=== PATIENT | female | born 1990 | race Caucasian/White ===

== ENCOUNTER 2016-11-21 18:23 | Inpatient (IN) | payer MEDICAID ==
[~2016-11-21] VITALS: Ht 157.5 cm; Wt 86.4 kg
[~2016-11-21 18:23] MED LIST: CHOL20009 PO; DULO60CA PO; ELAVIL; GABA1POW27; HYDR-531 PO; HYDROXAZINE; INSU100I4 SC; INSUINJ37 SUBCUT; LORA-655 PO; PREG25CA; TIAZAC; [UNRECOGNIZED DRUG - OTHER]
[2016-11-21 19:29] LABS: Basophils # (auto) 0 uL; Basophils % (auto) 0.2 % (0.0-2.0); Eosinophils # (auto) 0 uL; Hematocrit 44.3 % (36.0-46.0); Hemoglobin 14.1 g/dL (12.2-16.2); Lymphocytes # (auto) 0.7 uL; Lymphocytes % (auto) 6.6 % (10.0-50.0); Mean Corpuscular Hemoglobin 30.7 pg (28.0-32.0); Mean Corpuscular Hgb Conc. 31.7 g/dL (32.0-36.0); Mean Corpuscular Volume 96.9 fL (80.0-100.0); Monocytes # (auto) 0.4 uL; Monocytes % (auto) 3.5 % (0.0-12.0); Neutrophils # (auto) 9.5 uL; Neutrophils % (auto) 89.7 % (37.0-80.0); Platelet Count (auto) 301 10^3/uL (140-450); Red Cell Distribution Width 14.3 % (11.6-16.0); White Blood Cell 10.6 10^3/uL (4.4-10.8)
[2016-11-21 19:46] LABS: Albumin 3.7 g/dL (3.4-5.0); Bilirubin, Total 0.6 mg/dL (0.2-1.0); Calcium 10.3 mg/dL (8.5-10.1); Total Protein 8.2 g/dL (6.4-8.2)
[2016-11-21 19:52] LABS: Potassium 5.7 mmol/L (3.5-5.1)
[2016-11-21] MEDS ORDERED: SODIUM CHLORIDE 0.9% 1,000 ML IV ONE (20:15)
[2016-11-21] MEDS ORDERED: ONDANSETRON HCL 4 MG/2 ML VIAL IV ONE ×2 (20:15→22:30)
[2016-11-21] MEDS ORDERED: InsuLIN REG 1unit/0.01ml Soln (100units/ml) IV ONE (20:45)
[2016-11-21] MEDS ORDERED: NALBUPHINE HCL 10 MG/1ml INJECTION IV ONE (22:30)
[2016-11-22] MEDS ORDERED: DEXTROSE (50%) 50ML SYRG IV PRN
[2016-11-22 00:38] LABS: Basophils # (auto) 0.1 uL; Basophils % (auto) 0.6 % (0.0-2.0); Eosinophils # (auto) 0 uL; Hematocrit 43.9 % (36.0-46.0); Hemoglobin 13.8 g/dL (12.2-16.2); Lymphocytes # (auto) 0.8 uL; Lymphocytes % (auto) 8.4 % (10.0-50.0); Mean Corpuscular Hemoglobin 30.8 pg (28.0-32.0); Mean Corpuscular Hgb Conc. 31.5 g/dL (32.0-36.0); Mean Corpuscular Volume 97.5 fL (80.0-100.0); Monocytes # (auto) 0.6 uL; Monocytes % (auto) 6.1 % (0.0-12.0); Neutrophils # (auto) 7.6 uL; Neutrophils % (auto) 84.9 % (37.0-80.0); Platelet Count (auto) 361 10^3/uL (140-450); Red Cell Distribution Width 13.4 % (11.6-16.0); White Blood Cell 9.1 10^3/uL (4.4-10.8)
[2016-11-22] MEDS: ACCU-CHEK COMFORT CURVE STRIP VI SCH ×24 (01:00→23:12)
[2016-11-22 01:01] LABS: BUN/Creatinine Ratio 13.8; Magnesium 2.3 mg/dL (1.6-2.6)
[2016-11-22] MEDS ORDERED: InsuLIN REG 1unit/0.01ml Soln (100units/ml) ONE (01:01)
[2016-11-22 01:05] LABS: Potassium 5.8 mmol/L (3.5-5.1)
[2016-11-22] MEDS ORDERED: SODIUM BICARBONATE 8.4 % INJ 50ML VIAL IV ONE (01:15)
[2016-11-22] MEDS ORDERED: NITROGLYCERIN 0.4 MG SL TAB SL PRN (01:15)
[2016-11-22] MEDS ORDERED: MORPHINE SULF INJ 2 MG/ML SYRINGE 1ML IV PRN (01:15)
[2016-11-22] MEDS: InsuLIN R (HUMAN) 100 UNITS in SODIUM CHL 0.9% 99 ML IV SCH (01:34)
[2016-11-22] MEDS: SODIUM CHLORIDE 0.9% 1,000 ML IV SCH ×5 (01:36→20:47)
[2016-11-22] MEDS: cefTRIAXone 1GM/50ML D5W 50 ML IV SCH (02:00)
[2016-11-22] MEDS: HYDROmorphone HCL 2 MG/ML VL IV PRN ×7 (03:00→20:24)
[2016-11-22] MEDS: ONDANSETRON HCL 4 MG/2 ML VIAL IV PRN ×6 (03:00→20:25)
[2016-11-22] MEDS ORDERED: SODIUM CHLORIDE 0.9% 1,000 ML IV SCH (03:56)
[2016-11-22] MEDS: FAMOTIDINE (10MG/ML) 2ML VL IV SCH ×2 (07:56→22:16)
[2016-11-22 09:57] LABS: Albumin 3.5 g/dL (3.4-5.0); BUN/Creatinine Ratio 17.1; Bilirubin, Total 0.5 mg/dL (0.2-1.0); Calcium 9.8 mg/dL (8.5-10.1); Potassium 4.4 mmol/L (3.5-5.1); Total Protein 7.7 g/dL (6.4-8.2)
[2016-11-22] MEDS ORDERED: D5W/SOD CHLO 0.9% 1,000 ML IV SCH (13:30)
[2016-11-22 14:57] LABS: Calcium 8.9 mg/dL (8.5-10.1); Potassium 4.1 mmol/L (3.5-5.1)
[2016-11-22 15:35] LABS: INR 0.98 (0.9-1.15); Partial Thromboplastin Time 24.1 sec (22.64-33.71); Prothrombin Time 10.1 sec (9.37-12.3)
[2016-11-22 20:23] LABS: BUN/Creatinine Ratio 11.6; Calcium 8.6 mg/dL (8.5-10.1); Magnesium 1.8 mg/dL (1.6-2.6); Potassium 4.3 mmol/L (3.5-5.1)
[2016-11-22] MEDS: D5W/SOD CHLO 0.9% 1,000 ML IV SCH (20:30)
[2016-11-23] MEDS: HYDROmorphone HCL 2 MG/ML VL IV PRN ×6 (00:12→22:31)
[2016-11-23] MEDS: ACCU-CHEK COMFORT CURVE STRIP VI SCH ×16 (00:12→20:35)
[2016-11-23 01:20] LABS: BUN/Creatinine Ratio 11.6; Calcium 7.8 mg/dL (8.5-10.1); Magnesium 1.8 mg/dL (1.6-2.6); Potassium 3.4 mmol/L (3.5-5.1)
[2016-11-23] MEDS: cefTRIAXone 1GM/50ML D5W 50 ML IV SCH (02:29)
[2016-11-23] MEDS: ONDANSETRON HCL 4 MG/2 ML VIAL IV PRN ×3 (03:22→16:18)
[2016-11-23] MEDS: InsuLIN R (HUMAN) 100 UNITS in SODIUM CHL 0.9% 99 ML IV SCH (06:02)
[2016-11-23 06:24] LABS: Basophils # (auto) 0 uL; Basophils % (auto) 0.3 % (0.0-2.0); Eosinophils # (auto) 0.1 uL; Eosinophils % (auto) 0.8 % (0.0-7.0); Hematocrit 31.6 % (36.0-46.0); Hemoglobin 10.5 g/dL (12.2-16.2); Lymphocytes # (auto) 3.5 uL; Lymphocytes % (auto) 27.4 % (10.0-50.0); Mean Corpuscular Hemoglobin 31.2 pg (28.0-32.0); Mean Corpuscular Hgb Conc. 33.2 g/dL (32.0-36.0); Mean Corpuscular Volume 93.9 fL (80.0-100.0); Monocytes # (auto) 0.8 uL; Monocytes % (auto) 6.1 % (0.0-12.0); Neutrophils # (auto) 8.3 uL; Neutrophils % (auto) 65.4 % (37.0-80.0); Platelet Count (auto) 336 10^3/uL (140-450); Red Cell Distribution Width 13.7 % (11.6-16.0); White Blood Cell 12.7 10^3/uL (4.4-10.8)
[2016-11-23] MEDS: D5W/SOD CHLO 0.9% 1,000 ML IV SCH (06:30)
[2016-11-23] MEDS: SODIUM CHLORIDE 0.9% 1,000 ML IV SCH (06:30)
[2016-11-23 06:33] LABS: INR 0.97 (0.9-1.15); Partial Thromboplastin Time 24.3 sec (22.64-33.71)
[2016-11-23 06:37] LABS: BUN/Creatinine Ratio 11.5; Calcium 7.8 mg/dL (8.5-10.1); Magnesium 1.7 mg/dL (1.6-2.6); Potassium 3.6 mmol/L (3.5-5.1)
[2016-11-23] MEDS: FAMOTIDINE (10MG/ML) 2ML VL IV SCH ×2 (10:12→22:00)
[2016-11-23] MEDS ORDERED: INSULIN DETEMIR(LEVEMIR) 1unit/0.01ml Soln (100units/ml) SC ONE (11:45)
[2016-11-23] MEDS: MAGNESIUM SULFATE 1GM/100ML 100 ML IV SCH ×2 (12:02→13:00)
[2016-11-23] MEDS ORDERED: IBUPROFEN 400 MG TAB PO PRN (12:30)
[2016-11-23] MEDS ORDERED: ACETAMINOPHEN 325 MG TAB PO PRN (12:30)
[2016-11-23 13:12] LABS: Basophils # (auto) 0 uL; Basophils % (auto) 0.3 % (0.0-2.0); Eosinophils # (auto) 0.1 uL; Eosinophils % (auto) 1.2 % (0.0-7.0); Hematocrit 44.7 % (36.0-46.0); Hemoglobin 14.2 g/dL (12.2-16.2); Lymphocytes # (auto) 2.9 uL; Lymphocytes % (auto) 26.8 % (10.0-50.0); Mean Corpuscular Hemoglobin 30.2 pg (28.0-32.0); Mean Corpuscular Hgb Conc. 31.8 g/dL (32.0-36.0); Mean Corpuscular Volume 95.1 fL (80.0-100.0); Mean Platelet Volume 8.5 fL (7.4-10.4); Monocytes # (auto) 0.4 uL; Neutrophils # (auto) 7.3 uL; Neutrophils % (auto) 67.7 % (37.0-80.0); Platelet Count (auto) 328 10^3/uL (140-450); Red Cell Distribution Width 14.2 % (11.6-16.0); SUSPECT VIEW TRANSMISSION; White Blood Cell 10.8 10^3/uL (4.4-10.8)
[2016-11-23 13:37] LABS: Calcium 9.2 mg/dL (8.5-10.1); Magnesium 2.2 mg/dL (1.6-2.6); Potassium 4.1 mmol/L (3.5-5.1)
[2016-11-23] MEDS ORDERED: DEXTROSE (50%) 50ML SYRG IV PRN (14:00)
[2016-11-23] MEDS: InsuLIN REG 1unit/0.01ml Soln (100units/ml) SC SCH ×2 (16:03→20:00)
[2016-11-23 18:26] LABS: Basophils # (auto) 0 uL; Basophils % (auto) 0.1 % (0.0-2.0); Eosinophils # (auto) 0.1 uL; Eosinophils % (auto) 0.9 % (0.0-7.0); Hemoglobin 10.8 g/dL (12.2-16.2); Lymphocytes # (auto) 2.8 uL; Lymphocytes % (auto) 21.6 % (10.0-50.0); Mean Corpuscular Hemoglobin 31.1 pg (28.0-32.0); Mean Corpuscular Hgb Conc. 33.7 g/dL (32.0-36.0); Mean Corpuscular Volume 92.1 fL (80.0-100.0); Mean Platelet Volume 8.6 fL (7.4-10.4); Monocytes # (auto) 0.2 uL; Monocytes % (auto) 1.8 % (0.0-12.0); Neutrophils # (auto) 9.9 uL; Neutrophils % (auto) 75.6 % (37.0-80.0); Platelet Count (auto) 297 10^3/uL (140-450); Red Cell Distribution Width 13.8 % (11.6-16.0); SUSPECT VIEW TRANSMISSION
[2016-11-23 18:30] VITALS: BP 118/78
[2016-11-23 18:40] LABS: Calcium 8.1 mg/dL (8.5-10.1); Magnesium 2.2 mg/dL (1.6-2.6); Potassium 4.5 mmol/L (3.5-5.1)
[2016-11-23 19:29] LABS: INR 1.04 (0.9-1.15); Partial Thromboplastin Time 21.9 sec (22.64-33.71); Prothrombin Time 10.7 sec (9.37-12.3)
[2016-11-23 22:00] VITALS: BP 134/85
[2016-11-23 22:43] LABS: Urine Bilirubin Negative (Negative); Urine Blood TRACE /uL (Negative); Urine Color Yellow (Yellow); Urine Glucose TRACE mg/dL (Normal); Urine Ketone Negative (Negative); Urine Nitrite Negative (Negative); Urine RBC 8 /hpf (0 - 4); Urine Urobilinogen Normal (Negative)
[2016-11-24] MEDS: ACCU-CHEK COMFORT CURVE STRIP VI SCH ×6 (01:26→20:55)
[2016-11-24] MEDS: InsuLIN REG 1unit/0.01ml Soln (100units/ml) SC SCH ×7 (01:27→21:07)
[2016-11-24] MEDS: HYDROmorphone HCL 2 MG/ML VL IV PRN ×4 (04:06→21:18)
[2016-11-24 05:25] VITALS: BP 133/86
[2016-11-24 06:36] LABS: Basophils # (auto) 0.1 uL; Basophils % (auto) 0.8 % (0.0-2.0); Eosinophils # (auto) 0.3 uL; Eosinophils % (auto) 3.5 % (0.0-7.0); Hematocrit 31.8 % (36.0-46.0); Hemoglobin 10.8 g/dL (12.2-16.2); Lymphocytes # (auto) 3.2 uL; Lymphocytes % (auto) 37.1 % (10.0-50.0); Mean Corpuscular Hemoglobin 31.2 pg (28.0-32.0); Mean Corpuscular Volume 91.7 fL (80.0-100.0); Mean Platelet Volume 7.5 fL (7.4-10.4); Monocytes # (auto) 0.6 uL; Monocytes % (auto) 7.3 % (0.0-12.0); Neutrophils # (auto) 4.4 uL; Neutrophils % (auto) 51.3 % (37.0-80.0); Platelet Count (auto) 281 10^3/uL (140-450); White Blood Cell 8.5 10^3/uL (4.4-10.8)
[2016-11-24 06:56] LABS: BUN/Creatinine Ratio 11.8; Calcium 7.8 mg/dL (8.5-10.1); Magnesium 2.1 mg/dL (1.6-2.6); Potassium 3.8 mmol/L (3.5-5.1)
[2016-11-24 06:57] LABS: INR 0.93 (0.9-1.15); Partial Thromboplastin Time 20.6 sec (22.64-33.71); Prothrombin Time 9.6 sec (9.37-12.3)
[2016-11-24] MEDS ORDERED: INSULIN DETEMIR(LEVEMIR) 1unit/0.01ml Soln (100units/ml) SC SCH (07:00)
[2016-11-24] MEDS ORDERED: DEXTROSE (50%) 50ML SYRG IV ONE (07:45)
[2016-11-24 08:36] VITALS: BP 127/75
[2016-11-24] MEDS: FAMOTIDINE (10MG/ML) 2ML VL IV SCH ×2 (09:22→22:07)
[2016-11-24] MEDS ORDERED: METHYLERGONOVINE MALEATE 0.2 MG/ML AMP IM ONE (13:06)
[2016-11-24] MEDS ORDERED: OXYTOCIN 10UNIT/ML 1ML VIAL ONE (13:08)
[2016-11-24 13:15] VITALS: BP 156/85
[2016-11-24] MEDS ORDERED: ceFAZolin 1GM/50ML D5W 50 ML IV ONE (13:25)
[2016-11-24] MEDS ORDERED: MIDAZOLAM HCL 1MG/1ML-2 ML VIAL ONE (13:35)
[2016-11-24] MEDS ORDERED: fentaNYL CITRATE 100 MCG/2 ML VL ONE (13:35)
[2016-11-24] MEDS ORDERED: DEXAMETHASONE SOD PHOS 10MG/1ML VIAL INJ ONE (13:36)
[2016-11-24] MEDS ORDERED: ONDANSETRON HCL 4 MG/2 ML VIAL IV ONE (13:45)
[2016-11-24] MEDS ORDERED: MIDAZOLAM HCL 1MG/1ML-2 ML VIAL IV PRN (13:45)
[2016-11-24] MEDS ORDERED: LABETALOL HCL 5 MG/ML 4ML SYRINGE IV PRN (13:45)
[2016-11-24] MEDS ORDERED: KETOROLAC TROMETH 30 MG/ML 1ML VIAL IV ONE (13:45)
[2016-11-24] MEDS ORDERED: MORPHINE SULF INJ 2 MG/ML SYRINGE 1ML IV PRN (13:45)
[2016-11-24] MEDS ORDERED: HYDROmorphone HCL 2 MG/ML VL IV PRN (13:45)
[2016-11-24] MEDS ORDERED: ePHEDrine SULFATE 50 MG/ML AMP IV PRN (13:45)
[2016-11-24] MEDS ORDERED: PROPOFOL 10 MG/ML 20 ML IV ONE (13:58)
[2016-11-24] MEDS: INSULIN DETEMIR(LEVEMIR) 1unit/0.01ml Soln (100units/ml) SC SCH (16:08)
[2016-11-24 16:28] VITALS: BP 161/93
[2016-11-24] MEDS ORDERED: hydrALAZINE HCL 20 MG/ML VL IV PRN (20:30)
[2016-11-24 23:16] VITALS: BP 140/79
[2016-11-25] MEDS: ACCU-CHEK COMFORT CURVE STRIP VI SCH ×6 (00:05→20:26)
[2016-11-25] MEDS: InsuLIN REG 1unit/0.01ml Soln (100units/ml) SC SCH ×6 (00:18→20:33)
[2016-11-25] MEDS: HYDROmorphone HCL 2 MG/ML VL IV PRN ×4 (01:50→14:45)
[2016-11-25 06:08] VITALS: BP 146/92
[2016-11-25 06:34] LABS: Basophils # (auto) 0 uL; Basophils % (auto) 0.4 % (0.0-2.0); Eosinophils # (auto) 0 uL; Hematocrit 35.2 % (36.0-46.0); Hemoglobin 11.6 g/dL (12.2-16.2); Lymphocytes # (auto) 1.3 uL; Lymphocytes % (auto) 16.5 % (10.0-50.0); Mean Corpuscular Hemoglobin 30.6 pg (28.0-32.0); Mean Corpuscular Hgb Conc. 33.1 g/dL (32.0-36.0); Mean Corpuscular Volume 92.5 fL (80.0-100.0); Monocytes # (auto) 0.5 uL; Monocytes % (auto) 6.5 % (0.0-12.0); Neutrophils % (auto) 76.6 % (37.0-80.0); Platelet Count (auto) 343 10^3/uL (140-450); Red Cell Distribution Width 13.4 % (11.6-16.0); White Blood Cell 7.8 10^3/uL (4.4-10.8)
[2016-11-25 06:51] LABS: Potassium 3.9 mmol/L (3.5-5.1)
[2016-11-25 06:54] LABS: BUN/Creatinine Ratio 7.6; Calcium 8.4 mg/dL (8.5-10.1)
[2016-11-25] MEDS ORDERED: INSULIN DETEMIR(LEVEMIR) 1unit/0.01ml Soln (100units/ml) SC SCH (07:00)
[2016-11-25 09:00] VITALS: BP 145/81
[2016-11-25] MEDS: INSULIN DETEMIR(LEVEMIR) 1unit/0.01ml Soln (100units/ml) SC SCH (10:00)
[2016-11-25] MEDS: FAMOTIDINE (10MG/ML) 2ML VL IV SCH (10:31)
[2016-11-25 13:00] VITALS: BP 143/91
[2016-11-25 17:00] VITALS: BP 105/56
[2016-11-25 17:57] LABS: BUN/Creatinine Ratio 17.6; Calcium 8.4 mg/dL (8.5-10.1); Potassium 3.4 mmol/L (3.5-5.1)
[2016-11-25] MEDS ORDERED: PERCOT PO (18:29)
[2016-11-25] MEDS ORDERED: DOXYCYCLINE 100 MG TAB/CAP PO SCH (18:30)
[2016-11-25] MEDS ORDERED: LEVEMIR SC (18:33)
[2016-11-25] MEDS ORDERED: DOX100T PO (18:33)
[2016-11-25] MEDS ORDERED: IBUP-781 PO (18:33)
[2016-11-25 18:56] VITALS: BP 105/50
== END 2016-11-25 21:05 | disposition home health service (06) | DRG 952 ==
LOC: ER 18:29 → TELE 18:30 → TELE-E-ADS 11-23 15:07 → TELE-WESTW 11-23 21:20
PROVIDERS: ADMIT Family Medicine; ATTEND Internal Medicine
PROC: 10D17ZZ Extraction of Products of Conception, Retained, Via Natural or Artificial Opening (ICD-10-PCS; principal; 2016-11-24 13:53)
DX: E10.10 Type 1 diabetes mellitus with ketoacidosis without coma (principal); N17.0 Acute kidney failure with tubular necrosis; E10.42 Type 1 diabetes mellitus with diabetic polyneuropathy; O24.011 Pre-existing type 1 diabetes mellitus, in pregnancy, first trimester; O03.4 Incomplete spontaneous abortion without complication; E86.0 Dehydration; O46.8X1 Other antepartum hemorrhage, first trimester; K21.9 Gastro-esophageal reflux disease without esophagitis; F41.8 Other specified anxiety disorders; O26.811 Pregnancy related exhaustion and fatigue, first trimester; O26.891 Other specified pregnancy related conditions, first trimester; O99.341 Other mental disorders complicating pregnancy, first trimester; Z79.4 Long term (current) use of insulin; Z88.1 Allergy status to other antibiotic agents; Z88.5 Allergy status to narcotic agent; Z88.8 Allergy status to other drugs, medicaments and biological substances; Z91.19 Patient's noncompliance with other medical treatment and regimen; Z83.3 Family history of diabetes mellitus; Z80.3 Family history of malignant neoplasm of breast; Z81.1 Family history of alcohol abuse and dependence; Z79.899 Other long term (current) drug therapy; Z3A.08 8 weeks gestation of pregnancy
CPT/HCPCS: 36415; 36600; 71010; 76801; 76817; 80048; 80053; 81001; 82010; 82805; 82962; 83036; 83735; 83930; 84100; 84702; 85025; 85049; 85610; 85730; 86850; 86900; 86901; 87493; 93005; 96361; 96374; 96375; 96376; J0690; J0696; J1100; J1815; J1885; J2250; J2405; J2704; J3490; J7042

== ENCOUNTER 2017-04-28 13:15 | Inpatient (IN) | payer MEDICAID, OTHER ==
[~2017-04-28] VITALS: Ht 157.5 cm; Wt 83.3 kg
[~2017-04-28 13:15] MED LIST changes: -CHOL20009 PO; +DOX100T PO; -DULO60CA PO; -ELAVIL; -GABA1POW27; +GABA1POW27 PO; -HYDR-531 PO; -HYDROXAZINE; +IBUP-781 PO; -INSUINJ37 SUBCUT; +LEVEMIR SC; -LORA-655 PO; +PERCOT PO; -PREG25CA; -TIAZAC; -[UNRECOGNIZED DRUG - OTHER]
[2017-04-28] MEDS ORDERED: SODIUM CHLORIDE 0.9% 1,000 ML IV ONE ×2 (13:24→16:00)
[2017-04-28 13:58] LABS: Basophils # (auto) 0 uL; CONDITION Y; Eosinophils # (auto) 0 uL; Eosinophils % (auto) 0.2 % (0.0-7.0); Hematocrit 44.2 % (36.0-46.0); Hemoglobin 14.4 g/dL (12.2-16.2); Lymphocytes # (auto) 1.2 uL; Lymphocytes % (auto) 8.4 % (10.0-50.0); Mean Corpuscular Hemoglobin 30.6 pg (28.0-32.0); Mean Corpuscular Hgb Conc. 32.7 g/dL (32.0-36.0); Mean Corpuscular Volume 93.8 fL (80.0-100.0); Mean Platelet Volume 9.9 fL (7.4-10.4); Monocytes # (auto) 0.4 uL; Monocytes % (auto) 2.4 % (0.0-12.0); Platelet Count (auto) 400 10^3/uL (140-450); Red Cell Distribution Width 12.9 % (11.6-16.0); White Blood Cell 14.6 10^3/uL (4.4-10.8)
[2017-04-28] MEDS ORDERED: SODIUM CHLORIDE 0.9% 1,000 ML IVB ONE (14:03)
[2017-04-28] MEDS ORDERED: InsuLIN REG 1unit/0.01ml Soln (100units/ml) IV ONE (14:15)
[2017-04-28 14:17] LABS: Albumin 3.6 g/dL (3.4-5.0); BUN/Creatinine Ratio 15.1; Bilirubin, Total 1.1 mg/dL (0.2-1.0); Calcium 9.1 mg/dL (8.5-10.1); Total Protein 8.3 g/dL (6.4-8.2)
[2017-04-28 14:26] LABS: Magnesium 2.4 mg/dL (1.6-2.6)
[2017-04-28 14:27] LABS: Urine Bilirubin Negative (Negative); Urine Blood Negative /uL (Negative); Urine Mucus FEW (None Seen); Urine Nitrite Negative (Negative); Urine RBC 1 /hpf (0 - 4); Urine Squamous Epithelial Cell MOD /hpf (<5); Urine Urobilinogen Normal (Negative)
[2017-04-28 14:28] LABS: Urine Color Straw (Yellow); Urine Glucose 4+ mg/dL (Normal); Urine Ketone 2+ (Negative)
[2017-04-28] MEDS ORDERED: ONDANSETRON HCL 4 MG/2 ML VIAL IV ONE (14:30)
[2017-04-28] MEDS ORDERED: HYDROmorphone HCL 2 MG/ML VL IV ONE (14:30)
[2017-04-28 14:36] LABS: Allen Test Yes; Base Excess -9.7 mmol/L (-2.0-2.0); Blood 02Sat 96.2 % (96-100); Blood COHb 0.7 % (0.5-1.5); Blood MetHb 0.4 % (0.0-1.5); HCO3 14.9 mmol/L (22-26.0); HHb 3.8 % (0.0-5.0); MODE ROOM AIR; O2Hb 95.1 % (94.0-97.0); PCO2 29.4 mmHg (35.0-45.0); PCO2(T) 29.4 mmHg (35.0-45.0); Sample Type Arterial; pH 7.323 (7.350-7.450)
[2017-04-28 14:39] LABS: INR 0.89 (0.9-1.15); Partial Thromboplastin Time 26.4 sec (22.64-33.71); Prothrombin Time 9.7 sec (9.37-12.3)
[2017-04-28] MEDS ORDERED: cefTRIAXone 1GM/50ML D5W 50 ML IV ONE ×2 (14:45→15:45)
[2017-04-28] MEDS ORDERED: InsuLIN R (HUMAN) 100 UNITS in SODIUM CHL 0.9% 99 ML IV SCH (15:03)
[2017-04-28] MEDS ORDERED: DEXTROSE (50%) 50ML SYRG IV PRN ×2 (15:15→15:45)
[2017-04-28 15:19] LABS: Potassium 5.6 mmol/L (3.5-5.1)
[2017-04-28] MEDS ORDERED: LORazepam 0.5 MG TAB PO PRN (15:45)
[2017-04-28] MEDS ORDERED: NITROGLYCERIN 0.4 MG SL TAB SL PRN (15:45)
[2017-04-28] MEDS ORDERED: ACETAMINOPHEN 500 MG TAB PO PRN (15:45)
[2017-04-28] MEDS ORDERED: MORPHINE SULF INJ 2 MG/ML SYRINGE 1ML IV PRN ×2 (15:45)
[2017-04-28] MEDS ORDERED: HYDROcodone-ACET 5/325MG TAB PO PRN (15:45)
[2017-04-28] MEDS ORDERED: PROMETHAZINE HCL 25 MG/ML 1ML IV PRN (15:45)
[2017-04-28] MEDS ORDERED: TEMAZEPAM 15 MG CAP PO PRN (15:45)
[2017-04-28] MEDS: InsuLIN R (HUMAN) 100 UNITS in SODIUM CHL 0.9% 99 ML IV SCH ×2 (16:09→19:35)
[2017-04-28] MEDS: SODIUM CHLORIDE 0.9% 1,000 ML IV SCH ×3 (16:11→21:43)
[2017-04-28] MEDS: ACCU-CHEK COMFORT CURVE STRIP VI SCH ×8 (16:11→23:08)
[2017-04-28] MEDS ORDERED: ACCU-CHEK COMFORT CURVE STRIP VI SCH (16:30)
[2017-04-28] MEDS: HYDROmorphone HCL 2 MG/ML VL IV PRN ×2 (17:00→21:09)
[2017-04-28] MEDS ORDERED: SODIUM CHLORIDE 0.9% 1,000 ML IV SCH (19:42)
[2017-04-28 21:43] LABS: BUN/Creatinine Ratio 16.9; Calcium 7.3 mg/dL (8.5-10.1)
[2017-04-28 21:57] LABS: Potassium 4.3 mmol/L (3.5-5.1)
[2017-04-29] VITALS (9 sets, daily range): BP systolic 99–128; BP diastolic 52–87
[2017-04-29] MEDS: ONDANSETRON HCL 4 MG/2 ML VIAL IV PRN ×6 (01:08→22:20)
[2017-04-29] MEDS: HYDROmorphone HCL 2 MG/ML VL IV PRN ×6 (01:09→22:20)
[2017-04-29] MEDS ORDERED: InsuLIN REG 1unit/0.01ml Soln (100units/ml) ONE (01:27)
[2017-04-29] MEDS: ACCU-CHEK COMFORT CURVE STRIP VI SCH ×6 (01:56→22:28)
[2017-04-29] MEDS: SODIUM CHLORIDE 0.9% 1,000 ML IV SCH ×3 (01:57→17:42)
[2017-04-29 06:16] LABS: Basophils # (auto) 0.1 uL; Basophils % (auto) 0.9 % (0.0-2.0); CONDITION Y; Eosinophils # (auto) 0.1 uL; Eosinophils % (auto) 1.5 % (0.0-7.0); Hematocrit 37.6 % (36.0-46.0); Hemoglobin 12.7 g/dL (12.2-16.2); Lymphocytes # (auto) 3.3 uL; Lymphocytes % (auto) 33.4 % (10.0-50.0); Mean Corpuscular Hemoglobin 30.5 pg (28.0-32.0); Mean Corpuscular Hgb Conc. 33.7 g/dL (32.0-36.0); Mean Corpuscular Volume 90.5 fL (80.0-100.0); Mean Platelet Volume 9.4 fL (7.4-10.4); Monocytes # (auto) 0.5 uL; Monocytes % (auto) 4.6 % (0.0-12.0); Neutrophils % (auto) 59.6 % (37.0-80.0); Platelet Count (auto) 363 10^3/uL (140-450); Red Cell Distribution Width 12.5 % (11.6-16.0)
[2017-04-29] MEDS ORDERED: ALBU18 IN (06:33)
[2017-04-29] MEDS ORDERED: DIPH-506 OR (06:33)
[2017-04-29] MEDS ORDERED: INSLANTI SC (06:33)
[2017-04-29 06:44] LABS: Albumin 2.8 g/dL (3.4-5.0); Calcium 7.6 mg/dL (8.5-10.1); Potassium 3.7 mmol/L (3.5-5.1)
[2017-04-29 06:46] LABS: BUN/Creatinine Ratio 14.3
[2017-04-29 06:48] LABS: Bilirubin, Total 0.4 mg/dL (0.2-1.0); Total Protein 6.5 g/dL (6.4-8.2)
[2017-04-29] MEDS ORDERED: InsuLIN REG 1unit/0.01ml Soln (100units/ml) SC SCH (07:00)
[2017-04-29] MEDS: cefTRIAXone 1GM/50ML D5W 50 ML IV SCH (09:36)
[2017-04-29] MEDS: InsuLIN REG 1unit/0.01ml Soln (100units/ml) SC SCH ×4 (10:05→22:39)
[2017-04-29 11:55] LABS: BUN/Creatinine Ratio 15.1; Calcium 7.4 mg/dL (8.5-10.1)
[2017-04-30] MEDS: SODIUM CHLORIDE 0.9% 1,000 ML IV SCH ×3 (00:12→13:42)
[2017-04-30] MEDS: HYDROmorphone HCL 2 MG/ML VL IV PRN ×3 (02:21→10:26)
[2017-04-30] MEDS: ONDANSETRON HCL 4 MG/2 ML VIAL IV PRN ×3 (02:21→10:14)
[2017-04-30] MEDS: ACCU-CHEK COMFORT CURVE STRIP VI SCH ×3 (03:27→10:14)
[2017-04-30] MEDS: InsuLIN REG 1unit/0.01ml Soln (100units/ml) SC SCH ×3 (03:30→10:27)
[2017-04-30 05:24] VITALS: BP 112/66
[2017-04-30 09:00] VITALS: BP 122/71
[2017-04-30] MEDS: cefTRIAXone 1GM/50ML D5W 50 ML IV SCH (09:00)
== END 2017-04-30 13:35 | disposition home or self-care (01) | DRG 420 ==
LOC: ER 13:15 → TELE 13:16 → TELE-WESTW 23:45
PROVIDERS: ADMIT Internal Medicine; ATTEND Internal Medicine
DX: E10.10 Type 1 diabetes mellitus with ketoacidosis without coma (principal); E10.649 Type 1 diabetes mellitus with hypoglycemia without coma; N12 Tubulo-interstitial nephritis, not specified as acute or chronic; K21.9 Gastro-esophageal reflux disease without esophagitis; E66.9 Obesity, unspecified; Z68.33 Body mass index [BMI] 33.0-33.9, adult; F41.9 Anxiety disorder, unspecified; E66.01 Morbid (severe) obesity due to excess calories; F32.9 Major depressive disorder, single episode, unspecified; G89.4 Chronic pain syndrome; Z80.3 Family history of malignant neoplasm of breast; Z83.3 Family history of diabetes mellitus; Z81.1 Family history of alcohol abuse and dependence; Z88.5 Allergy status to narcotic agent; Z88.8 Allergy status to other drugs, medicaments and biological substances; Z80.9 Family history of malignant neoplasm, unspecified; Z71.89 Other specified counseling
CPT/HCPCS: 36415; 36600; 71010; 80048; 80053; 81001; 81025; 82010; 82150; 82805; 82962; 83036; 83690; 83735; 85025; 85610; 85730; 86141; 87086; 93005; 96361; 96365; 96367; 96375; 99291; J0696; J1815; J2405